=== PATIENT | male | born 2000 | race Hispanic/Latino ===

== ENCOUNTER 2021-10-29 10:28 | Day surgery (SDC) | payer MEDICAID ==
[2021-10-29 10:50] VITALS: BP 112/78
[2021-10-29] MEDS ORDERED: 0.9%NACL 1000ML 1,000 ML IV ONE (10:59)
[2021-10-29] MEDS ORDERED: PROPOFOL 10 MG/ML 20ML VIAL IV ONE ×2 (11:04→12:26)
[2021-10-29] MEDS ORDERED: LIDOCAINE PF 100MG/5ML (2%) SYRINGE 5ML ONE (11:16)
[2021-10-29] MEDS ORDERED: MIDO10TA PO (11:32)
[2021-10-29 12:32] VITALS: BP 113/59
[2021-10-29 12:37] VITALS: BP 94/55
[2021-10-29 12:42] VITALS: BP 106/69
[2021-10-29 12:47] VITALS: BP 100/65
[2021-10-29 12:49] LABS: BASOPHILS % (AUTO) 0.4 % (0.0-5.0); HEMATOCRIT 26.4 % (42-54); LYMPHOCYTES % (AUTO) 22.7 % (21.0-51.0); MEAN CORPUSCULAR HEMOGLOBIN 24.5 pg (27.0-33.0); MEAN CORPUSCULAR HGB CONC 30.7 g/dL (32.0-36.0); MEAN CORPUSCULAR VOLUME 79.8 fL (80-100); MONOCYTES % (AUTO) 8.1 % (3.0-13.0); NEUTROPHILS % (AUTO) 67.6 % (40.0-77.0); PLATELET COUNT (AUTO) 161 K/uL (130-400); RED BLOOD CELL COUNT(AUTO) 3.31 MIL/uL (4.50-6.20); RED CELL DISTRIBUTION WIDTH 15.5 % (11.0-15.5); WHITE BLOOD COUNT (AUTO) 4.9 K/uL (4.8-10.8)
[2021-10-29 12:58] LABS: INR 1.13 (0.85-1.15); PROTHROMBIN TIME 12.2 SEC (9.6-11.6)
[2021-10-29 13:10] VITALS: BP 106/66
== END 2021-10-29 13:10 | disposition home or self-care (01) ==
LOC: ENDO 10:28 → DAH 10:28 → ENDO 13:10
PROVIDERS: ATTEND Internal Medicine Gastroenterology
DX: K92.0 Hematemesis (principal); K62.5 Hemorrhage of anus and rectum; Z20.822 Contact with and (suspected) exposure to COVID-19; K21.00 Gastro-esophageal reflux disease with esophagitis, without bleeding; K22.11 Ulcer of esophagus with bleeding; K29.01 Acute gastritis with bleeding; D50.9 Iron deficiency anemia, unspecified; R19.4 Change in bowel habit; R63.4 Abnormal weight loss; E78.5 Hyperlipidemia, unspecified; I25.10 Atherosclerotic heart disease of native coronary artery without angina pectoris; I25.2 Old myocardial infarction; Z86.73 Personal history of transient ischemic attack (TIA), and cerebral infarction without residual deficits; Z79.899 Other long term (current) drug therapy; Z68.1 Body mass index [BMI] 19.9 or less, adult
CPT/HCPCS: 36415; 43239; 85025; 85610; 87635; 88305; 88342; A4215 ×2; A4221; A4222; A4223; A4606; A4620; A4657; A4663; C9803; J3490 ×3; J7030; J2001; J2704

== ENCOUNTER 2022-01-28 10:40 | Day surgery (SDC) | payer MEDICAID ==
[~2022-01-28] VITALS: Ht 152.4 cm; Wt 31.8 kg
[~2022-01-28 10:40] MED LIST: 0.9%NACL 1000ML 1,000 ML IV ONE; OMEP20TA20 PO; PANT20TA18 PO; SUCR1ORA15 PO
[2022-01-28 11:00] VITALS: BP 121/90
[2022-01-28] MEDS ORDERED: PROPOFOL 10 MG/ML 20ML VIAL IV ONE ×2 (11:21)
[2022-01-28] MEDS ORDERED: LIDOCAINE HCL 1% 20 ML VIAL ONE (11:31)
[2022-01-28 12:03] VITALS: BP 120/79
[2022-01-28 12:15] VITALS: BP 115/75
[2022-01-28 12:28] VITALS: BP 111/74
== END 2022-01-28 12:45 | disposition home or self-care (01) ==
LOC: ENDO 10:40
PROVIDERS: ATTEND Internal Medicine Gastroenterology
DX: K22.10 Ulcer of esophagus without bleeding (principal); K21.00 Gastro-esophageal reflux disease with esophagitis, without bleeding; K29.00 Acute gastritis without bleeding; K44.9 Diaphragmatic hernia without obstruction or gangrene; Z20.822 Contact with and (suspected) exposure to COVID-19
CPT/HCPCS: 43239; 87635; A4215 ×2; A4221; A4222; A4223; A4606; A4620; A4663; C9803; J3490; J7030; J2704